=== PATIENT | female | born 1990 | race Caucasian/White ===

== ENCOUNTER 2023-05-01 15:53 | Outpatient (REF) | payer MEDICAID, SELFPAY ==
[2023-05-08 09:04] LABS: Hydrocodone, Ur NEGATIVE; Hydromorphone, Ur NEGATIVE; Morphine, Ur NEGATIVE; Norhydrocodone, Ur NEGATIVE; Noroxycodone, Ur NEGATIVE; Oxycodone, Ur NEGATIVE; Oxymorphone, Ur NEGATIVE
== END 2023-05-01 15:54 | disposition home or self-care (01) ==
LOC: HO.HHCLNP 15:53
PROVIDERS: Visit Provider Emergency Medicine
DX: F11.20 Opioid dependence, uncomplicated (principal)
CPT/HCPCS: 80365; G0480

== ENCOUNTER 2024-08-20 14:20 | Outpatient (REF) | payer MEDICAID, SELFPAY ==
[2024-08-20 16:06] LABS: MANUAL DIFF FLAG NO
[2024-08-20 16:15] LABS: Basophils Absolute Auto 0.1 X10*3/uL (0.0-0.2); Basophils Percent Auto 0.5 % (0-2); Eosinophils Percent Auto 8.2 % (0-4); Hematocrit 44.2 % (37.0-47.0); Hemoglobin 14.6 g/dl (12.0-16.0); Imm Gran Abs Auto 0.03 X10*3/uL (0.00-0.03); Imm Gran Pct Auto 0.2 % (0.0-0.4); Lymphocytes Absolute Auto 2.3 X10*3/uL (1.2-4.9); Lymphocytes Percent Auto 18.2 % (20-40); Mean Corpuscular Hemoglobin 30.2 pg (27.0-33.0); Mean Corpuscular Volume 91.5 fL (80.0-98.0); Mean Platelet Volume 9.9 fL (9.4-12.3); Monocytes Absolute Auto 0.7 X10*3/uL (0.1-1.2); Monocytes Percent Auto 5.3 % (2-11); Neutrophils Absolute Auto 8.6 x10*3/uL (2.0-8.3); Neutrophils Percent Auto 67.6 % (45-73); Platelet Count 474 X10*3/uL (160-400); Red Blood Count 4.83 X10*6/uL (4.20-5.50); Red Cell Distribution Width 13.7 % (11.0-16.0); White Blood Count 12.7 X10*3/uL (4.8-10.8)
[2024-08-20 16:28] LABS: Estimated Average Glucose 103 mg/dL; Hemoglobin A1C 127.4467 umol/L; Hemoglobin A1c % 5.2 % (<6.0); Total Hemoglobin (HGBA1C) 3806.2837 umol/L
[2024-08-20 17:08] LABS: Alanine Aminotransferase 57 U/L (0-31); Albumin Level 4.3 g/dL (3.5-5.0); Alkaline Phosphatase 138 U/L (39-117); Anion Gap 13 (12-20); Aspartate Amino Transferase 31 U/L (5-31); Bilirubin Direct 0.1 mg/dL (0.0-0.5); Bilirubin Total 0.3 mg/dL (0.0-1.0); Blood Urea Nitrogen 19 mg/dL (9-16); Calcium 9.6 mg/dL (8.4-10.2); Carbon Dioxide 26 mmol/L (22-29); Chloride 105 mmol/L (96-108); Estimated Glomerular Filt Rate > 60; Glucose Random 83 mg/dL (60-115); Sodium 140 mmol/L (135-145); Total Protein 8.8 g/dL (6.5-8.0)
[2024-08-20 17:26] LABS: TSH reflex Free T4 1.92 uIU/mL (0.32-4.0)
--- OUTSIDE RECORDS SUMMARY | 2024-08-20 17:58 | XMS_ITS | Encounter Summary ---
Author Organization [email or web address] Address [address] [place] [address] [facility] [place] [address] Care Team Providers Care Rustic Terrazzo Setter Name Role Phone Unavailable Primary Care Provider Unavailabl e Reason for Visit * Reason Onset Date Comments Med Refill 10/02/2023 Encounter Details Date Type Department Care Team (Late st Contact Info) Description 10/02/2023 Refill [facility] [address] [place] [address] [phone] Pranav Erazo MD [address] [place] [address] [phone] Shortness of breath Social History Tobacco Use Types Packs/Day Years Used Date Smoking Tobacco: Never Smokeless Tobacco: Never Depression Answer Date Recorded Patient Health Questionnaire-9 Score 4 02/22/2023 Depression Answer Date Recorded Patient Health Questionnaire-2 Score 0 02/22/2023 Comments Unknown Sex and Gender Information Value Date Recorded Sex Assigned at Female 04/25/2022 10:27 AM EDT Legal Sex Female 10:27 AM EDT Gender Identity Female 04/25/2022 10:27 AM EDT Sexual Orientation Straight 04/25/2022 10 :27 AM EDT documented as of this encounter Plan of Treatment Upcoming Encounters Date Type Department Care Team (Late st Contact Info) Description 09/16/2024 1:00 PM EDT Office Visit [facility] [address] [place] [address] [phone] Pranav Erazo MD [address] [place] [address] [phone] 10/02/2024 2:00 PM EDT Office Visit [facility] [address] [place] [address] Mayda Jones FNP 230 [place] [address] 11/11/2024 2:15 PM EDT Clinical Support [address] [address] Alize Carey RN documented as of this encounter Visit Diagnoses Diagnosis Shortness of breath documented in this encounter Additional Health Concerns Assessment Noted Time PHQ-9 Depression Total Score: 4 02/23/20 23 11:55 AM EDT documented as of this encounter
--- OUTSIDE RECORDS SUMMARY | 2024-08-20 17:58 | XMS_ITS | Encounter Summary ---
Author Organization [employer] [facility] Address [address] [place] [address] [place] [address] Care Team Providers Care Staffing Consultant Name Role Phone Unavailable Primary Care Provider Unavailabl e Reason for Visit * Reason Comments Med Refill Encounter Details Date Type Department Care Team (Late st Contact Info) Description 06/24/2024 Refill [facility] [address] [place] [address] Pranav Erazo MD [address] [place] [phone] Mixed anxiety and depressive disorder Social History Tobacco Use Types Packs/Day Years [...] Description 09/16/2024 1:00 PM EDT Office Visit [facility] [address] [place] [phone] Pranav Erazo MD [address] [place] [phone] 10/02/2024 2:00 PM EDT Office Visit [facility] [address] [place] [address] Mayda Jones FNP 230 [place] [address] 11/11/2024 2:15 PM EDT Clinical Support [facility] [address] [place] [address] Alize Carey RN documented as of this encounter Visit Diagnoses Diagnosis Mixed anxiety and depressive disorder Dysthymic disorder documented in this encounter Additional Health Concerns Assessment Noted Time PHQ-9 Depression Total Score: 4 02/23/20 23 11:55 AM EDT documented as of this encounter
--- OUTSIDE RECORDS SUMMARY | 2024-08-20 17:58 | XMS_ITS | Encounter Summary ---
Author Organization [employer] Address [address] [place] [address] Care Team Providers Care Financial Services Specialist Name Role Phone Mar Elizabeth Primary Care Provider [phone] Reason for Visit * Reason Comments Med Refill Encounter Details Date Type Department Care Team (Late st Contact Info) Description 02/09/2023 Refill [facility] [address] [place] [phone] Mar Elizabeth FNP [address] [place] [address] 238[address] Mixed anxiety and depressive disorder Social History Tobacco Use Types Packs/Day Years Used Date Smoking Tobacco: Never Smokeless Tobacco: Never Comments Unknown Sex and Gender Information Value [...] Description 09/16/2024 1:00 PM EDT Office Visit [facility] [address] [place] [phone] Pranav Erazo MD 230 [place] [address] 10/02/2024 2:00 PM EDT Office Visit [facility] [address] [place] [address] Mayda Jones FNP 230 [place] [address] 11/11/2024 2:15 PM EDT Clinical Support [facility] [address] [place] [phone] Alize Carey RN documented as of this encounter Visit Diagnoses Diagnosis Mixed anxiety and depressive disorder Dysthymic disorder documented in this encounter Care Teams Financial Services Specialist Relationship Specialty Start Date End Date Mar Elizabeth FNP [address] [place] [phone] PCP - General Family Medicine 02/23/22 04/20/23 documented as of this encounter
--- OUTSIDE RECORDS SUMMARY | 2024-08-20 17:58 | XMS_ITS | Encounter Summary ---
Author Organization [employer] Address [address] [place] [address] Care Team Providers Care Figurine Maker Name Role Phone Unavailable Primary Care Provider Unavailabl e Reason for Visit * Reason Comments Med Refill Encounter Details Date Type Department Care Team (Late st Contact Info) Description 10/01/2023 Refill [facility] [address] [place] [phone] Pranav Erazo MD [address] [place] [phone] Social History Tobacco Use Types Packs/Day Years [...] Description 09/16/2024 1:00 PM EDT Office Visit [facility] [address] [place] [address] Pranav Erazo MD [address] [place] [phone] 10/02/2024 2:00 PM EDT Office Visit [facility] [address] [place] [address] Mayda Jones FNP 230 [place] [address] 11/11/2024 2:15 PM EDT Clinical Support [facility] [address] [place] [address] Alize Carey RN documented as of this encounter Visit Diagnoses Not on filedocumented in this encounter Additional Health Concerns Assessment Noted Time PHQ-9 Depression Total Score: 4 02/23/20 23 11:55 AM EDT documented as of this encounter
--- OUTSIDE RECORDS SUMMARY | 2024-08-20 17:58 | XMS_ITS | Encounter Summary ---
Author Organization [employer] Address [address] [place] [address] 7 [place] [address] Care Team Providers Care Data Integration Architect Name Role Phone Unavailable Primary Care Provider Unavailabl e Encounter Details Date Type Department Care Team (Late st Contact Info) Description 10/31/2023 Orders Only [facility] [address] [place] [address] [phone] Pranav Erazo MD [address] [place] [phone] Social History Tobacco Use Types Packs/Day Years [...] 09/16/2024 1:00 PM EDT Office Visit [facility] [address] [place] [phone] Pranav Erazo MD [address] [place] [address] 10/02/2024 2:00 PM EDT Office Visit [facility] [address] [place] [address] Mayda Jones FNP 230 [place] [address] 11/11/2024 2:15 PM EDT Clinical Support [facility] [address] [place] [address] Alize Carey RN documented as of this encounter Visit Diagnoses Not on filedocumented in this encounter Additional Health Concerns Assessment Noted Time PHQ-9 Depression Total Score: 4 02/23/20 23 11:55 AM EDT documented as of this encounter
--- OUTSIDE RECORDS SUMMARY | 2024-08-20 17:58 | XMS_ITS | Encounter Summary ---
Author Organization [employer] [facility] Address [address] [place] [address] [place] [address] Care Team Providers Care Service Desk Director Name Role Phone Unavailable Primary Care Provider Unavailabl e Reason for Visit * Reason Onset Date Comments Med Refill 07/09/2024 Encounter Details Date Type Department Care Team (Late st Contact Info) Description 07/09/2024 Refill [facility] [address] [place] [address] Pranav Erazo MD [address] [place] [phone] Mixed anxiety and depressive disorder Social History [...] Description 09/16/2024 1:00 PM EDT Office Visit [facility] [address] [place] [address] Pranav Erazo MD [address] [place] [address] [phone] 10/02/2024 2:00 PM EDT Office Visit [facility] 230 [place] [address] Mayda Jones FNP 230 [place] [address] 11/11/2024 2:15 PM EDT Clinical Support [facility] [address] [place] [address] Alize Carey RN documented as of this encounter Visit Diagnoses Diagnosis Mixed anxiety and depressive disorder Dysthymic disorder documented in this encounter Additional Health Concerns Assessment Noted Time PHQ-9 Depression Total Score: 4 02/23/20 23 11:55 AM EDT documented as of this encounter
--- OUTSIDE RECORDS SUMMARY | 2024-08-20 17:58 | XMS_ITS | Encounter Summary ---
Author Organization [employer] [facility] Address [address] [place] [address] Care Team Providers Care Metal Forger'S Assistant Name Role Phone Unavailable Primary Care Provider Unavailabl e Reason for Visit * Reason Onset Date Comments Med Refill 07/03/2024 Encounter Details Date Type Department Care Team (Late st Contact Info) Description 07/03/2024 Refill [facility] [address] [place] [phone] Pranav Erazo MD [address] [place] [address] Mixed anxiety and depressive disorder Social History [...] Description 09/16/2024 1:00 PM EDT Office Visit [facility] [address] [place] [phone] Pranav Erazo MD [address] [place] [address] [phone] 10/02/2024 2:00 PM EDT Office Visit [facility] 230 [place] [address] Mayda Jones FNP 230 [place] [address] 11/11/2024 2:15 PM EDT Clinical Support [facility] [address] [place] [address] Alize Carey RN documented as of this encounter Visit Diagnoses Diagnosis Mixed anxiety and depressive disorder Dysthymic disorder documented in this encounter Additional Health Concerns Assessment Noted Time PHQ-9 Depression Total Score: 4 02/23/20 23 11:55 AM EDT documented as of this encounter
--- OUTSIDE RECORDS SUMMARY | 2024-08-20 17:58 | XMS_ITS | Encounter Summary ---
Author Organization [employer] [facility] Address [address] [place] [address] [place] [address] Care Team Providers Care Tractor Drill Operator Name Role Phone Mar Elizabeth SALOME Primary Care Provider [phone] Reason for Visit * Reason Onset Date Comments Med Refill 04/05/2023 Encounter Details Date Type Department Care Team (Late st Contact Info) Description 04/05/[address] [facility] [address] [place] [address] [phone] Pranav Erazo MD [address] [place] [address] [phone] Uncomplicated opioid dependence (CMS/[facility]) Social History Tobacco Use Types Packs/Day Years [...] 1:00 PM EDT Office Visit [facility] [address] [place] [address] [phone] Pranav Erazo MD [address] [place] [address] [phone] 10/02/2024 2:00 PM EDT Office Visit [facility] 230 [place] [address] Mayda Jones FNP 230 [place] [address] 11/11/2024 2:15 PM EDT Clinical Support [facility] [address] [place] [address] [phone] Alize Carey RN documented as of this encounter Visit Diagnoses Diagnosis Uncomplicated opioid dependence (CMS/HCC) documented in this encounter Additional Health Concerns Assessment Noted Time PHQ-9 Depression Total Score: 4 02/23/20 23 11:55 AM EDT documented as of this encounter Care Teams Tractor Drill Operator Relationship Specialty Start Date End Date Mar Elizabeth FNP [address] [place] [phone] PCP - General Family Medicine 02/23/22 04/20/23 documented as of this encounter
--- OUTSIDE RECORDS SUMMARY | 2024-08-20 17:58 | XMS_ITS | Encounter Summary ---
Author Organization [employer] Address [address] [place] [address] [place] [address] Care Team Providers Care Soda Worker Name Role Phone Mar Elizabeth SALOME Primary Care Provider [phone] Reason for Visit * Reason Onset Date Comments Med Refill [facility]-Referral 04/19/2023 - [facility]oph[facility] Encounter Details Date Type Department Care Team (Late st Contact Info) Description 04/19/2023 Refill [facility] 230 [place] [address] Pranav Erazo MD [address] [place] [address] Social History Tobacco Use Types Packs/Day Years [...] AM EDT documented as of this encounter Miscellaneous Notes * Telephone Encounter - Louise Perez MA - 04/19/2023 10:30 AM EDT T/c placed to pt and her phone # is not active at this time. This call was regarding to schedule anapt as tele-visit.-[facility]. documented in this encounter Plan of Treatment Upcoming Encounters Date Type Department Care Team (Late st Contact Info) Description 09/16/2024 1:00 PM EDT Office Visit [address] [address] Pranav Erazo MD [address] [place] [address] 10/02/2024 2:00 PM EDT Office Visit [address] [address] Mayda Jones FNP 230 [place], [place] [phone] 11/11/2024 2:15 PM EDT Clinical Support [address] [address] Alize Carey RN documented as of this encounter Visit Diagnoses Not on filedocumented in this encounter Additional Health Concerns Assessment Noted Time PHQ-9 Depression Total Score: 4 02/23/20 23 11:55 AM EDT documented as of this encounter Care Teams Soda Worker Relationship Specialty Start Date End Date Mar Elizabeth FNP [address] [place] [phone] PCP - General Family Medicine 02/23/22 04/20/23 documented as of this encounter
--- OUTSIDE RECORDS SUMMARY | 2024-08-20 17:58 | XMS_ITS | Encounter Summary ---
Author Organization [employer] Address [address] [place] [address] 7 [place] [address] Care Team Providers Care Mine Engineering Superintendent Name Role Phone Unavailable Primary Care Provider Unavailabl e Reason for Visit * Reason Comments Med Refill Encounter Details Date Type Department Care Team (Late st Contact Info) Description 01/08/2024 Refill [facility] [address] [place] [address] Pranav Erazo MD [address] [place] [address] Mixed anxiety and depressive disorder Social History [...] Description 09/16/2024 1:00 PM EDT Office Visit [facility] [address] [place] [address] Pranav Erazo MD [address] [place] [address] [phone] 10/02/2024 2:00 PM EDT Office Visit [facility] 230 [place] [address] Mayda Jones FNP 230 [place] [address] 11/11/2024 2:15 PM EDT Clinical Support [facility] [address] [place] [address] Alize Carey RN documented as of this encounter Visit Diagnoses Diagnosis Mixed anxiety and depressive disorder Dysthymic disorder documented in this encounter Additional Health Concerns Assessment Noted Time PHQ-9 Depression Total Score: 4 02/23/20 23 11:55 AM EDT documented as of this encounter
--- OUTSIDE RECORDS SUMMARY | 2024-08-20 17:58 | XMS_ITS | Encounter Summary ---
Author Organization [employer] Address [address] [place] [address] 7 [place] [address] Care Team Providers Care Analytical Strategist Name Role Phone Unavailable Primary Care Provider Unavailabl e Encounter Details Date Type Department Care Team (Late st Contact Info) Description 07/17/2023 Orders Only [facility] [address] [place] [address] [phone] Pranav Erazo MD [address] [place] [address] [phone] Shortness of breath Social History Tobacco Use [...] Description 09/16/2024 1:00 PM EDT Office Visit [facility] [address] [place] [address] [phone] Pranav Erazo MD [address] [place] [address] [phone] 10/02/2024 2:00 PM EDT Office Visit [facility] [address] [place] [phone] Mayda Jones FNP 230 [place] [address] 11/11/2024 2:15 PM EDT Clinical Support [facility] [address] [place] [address] Alize Carey RN documented as of this encounter Visit Diagnoses Diagnosis Shortness of breath documented in this encounter Additional Health Concerns Assessment Noted Time PHQ-9 Depression Total Score: 4 02/23/20 23 11:55 AM EDT documented as of this encounter
--- OUTSIDE RECORDS SUMMARY | 2024-08-20 17:58 | XMS_ITS | Encounter Summary ---
Author Organization [employer] [facility] Address [address] [place] [address] Care Team Providers Care Bow Stapler Name Role Phone Unavailable Primary Care Provider Unavailabl e Encounter Details Date Type Department Care Team (Late Contact Info) Description 07/13/2023 Orders Only [facility] [address] [place] [phone] Alize Carey RN Opioid type dependence, continuous (CMS/[facility]) Social History Tobacco Use Types [...] Encounters Date Type Department Care Team (Late Contact Info) Description 09/16/2024 1:00 PM EDT Office Visit [facility] [address] [place] [address] Pranav Erazo MD 230 [place] [address] 10/02/2024 2:00 PM EDT Office Visit [facility] [address] [place] [address] Mayda Jones FNP 230 [place] [address] 11/11/2024 2:15 PM EDT Clinical Support [facility] [address] [place] [address] Alize Carey, MADDY Scheduled Orders Name Type Priority Associated Diagnoses Orde r Schedule Hepatic Function Panel Lab Routine Opioid type dependence, continuous (CMS/HCC) Expected: 07/13/2023 (Approximate), Expires: 07/13/2024 Hepatitis A Antibody, Total Lab Routine Opioid type dependence, continuous (CMS/HCC) Expected: 07/13/2023 (Approximate), Expires: 07/13/2024 Hepatitis B Core Antibody, Total Lab Routine Opioid type dependence, continuous (CMS/HCC) Expected: 07/13/2023 (Approximate), Expires: 07/13/2024 Hepatitis B Surface Antibody, Qualitative Lab Routine Opioid type dependence, continuous (CMS/HCC) Expected: 07/13/2023 (Approximate), Expires: 07/13/2024 Hepatitis B surface antigen, EIA Lab Routine Opioid type dependence, continuous (CMS/HCC) Expected: 07/13/2023 (Approximate), Expires: 07/13/2024 Hepatitis C Antibody with Reflex to HCV, RNA, Quantitative, Real-Time PCR Lab Routine Opioid type dependence, continuous (CMS/HCC) Expected: 07/13/2023 (Approximate), Expires: 07/13/2024 HIV-1/2 Antigen and Antibodies, Fourth Generation, with Reflexes Lab Routine Opioid type dependence, continuous (CMS/HCC) Expected: 07/13/2023 (Approximate), Expires: 07/13/2024 Syphilis Screen Lab Routine Opioid type dependence, continuous (CMS/HCC) Expected: 07/13/2023 (Approximate), Expires: 07/13/2024 T-SPOT??.TB Lab Routine Opioid type dependence, continuous (CMS/HCC) Expected: 07/13/2023 (Approximate), Expires: 07/13/2024 documented as of this encounter Visit Diagnoses Diagnosis Opioid type dependence, continuous (CMS/HCC) Opioid type dependence, continuous documented in this encounter Additional Health Concerns Assessment Noted Time PHQ-9 Depression Total Score: 4 02/23/20 23 11:55 AM EDT documented as of this encounter
--- OUTSIDE RECORDS SUMMARY | 2024-08-20 17:58 | XMS_ITS | Encounter Summary ---
Author Organization [employer] Address [address] [place] [address] [place] [address] Care Team Providers Care Vessel Specialist Name Role Phone Unavailable Primary Care Provider Unavailabl e Reason for Visit * Reason Onset Date Comments Med Refill 07/12/2023 Encounter Details Date Type Department Care Team (Late st Contact Info) Description 07/12/2023 Refill [facility] [address] [place] [phone] Mar Elizabeth FNP [address] [place] [address] Shortness of breath Social History Tobacco Use [...] Description 09/16/2024 1:00 PM EDT Office Visit [facility] [address] [place] [address] Pranav Erazo MD [address] [place] [address] 10/02/2024 2:00 PM EDT Office Visit [facility] [address] [place] [address] Mayda Jones FNP [address] [place] [address] 11/11/2024 2:15 PM EDT Clinical Support [facility] [address] [place] [address] Alize Carey RN documented as of this encounter Visit Diagnoses Diagnosis Shortness of breath documented in this encounter Additional Health Concerns Assessment Noted Time PHQ-9 Depression Total Score: 4 02/23/20 23 11:55 AM EDT documented as of this encounter
--- OUTSIDE RECORDS SUMMARY | 2024-08-20 17:58 | XMS_ITS | Clinical Summary ---
Author Organization [employer] Address [address] [place] [address] 7 [place] [address] Care Team Providers Care Aviation Boatswain'S Mate Name Role Phone Unavailable Primary Care Provider Unavailabl e Allergies Active Allergy Reactions Criticality Noted Date Comments Amoxicillin 12/16/2014 Other reaction(s): Unknown Clavulanic Acid 12/16/2014 Other reaction(s): Unknown Hydrocodone 12/16/2014 Zolpidem 12/16/2014 Medications * This document contains information received from the source organization and may not represent a complete record from that organization. montelukast (Singulair) 10 MG tablet Take 1 tablet by mouth at bed time. 022 Active SUMAtriptan (Imitrex) 50 MG tablet Take 1 tablet by mouth. 022 Active Flovent HFA 110 MCG/ACT inhalerIndicati ons:Mild persistent asthma without complication INHALE 1 PUFF BY MOUTH EVERY 12 HOURS 36 g 023 Active sennosides (Senokot) 8.6 MG tabletIndicatio ns:Opioid dependence with opioid-induced disorder (CMS/HCC) Take 2 tablets by mouth every day as needed for constipation 180 tablet 3 023 Active docusate sodium (Colace) 100 MG capsuleIndicati ons:Uncomplicat ed opioid dependence (CMS/HCC) TAKE 1 CAPSULE BY MOUTH 2 TIMES EVERY DAY NEEDED CONSTIPATION 180 capsule 2 024 Active albuterol (Ventolin HFA) 108 (90 Base) MCG/ACT inhalerIndicati ons:Shortness of breath TAKE 2 PUFFS BY MOUTH EVERY 4 TO 6 HOURS NEEDED 18 g 3 024 Active Buprenorphine HCl-Naloxone HCl (Suboxone) 8-2 MG SL filmIndications :Uncomplicated opioid dependence (CMS/HCC) Place 1 Film under the tongue Once per day. 28 Film 1 024 Active DULoxetine (Cymbalta) [address] capsule TAKE 1 CAPSULE (60 MG) BY MOUTH 2 TIMES DAILY. DO NOT CRUSH OR CHEW. 60 capsule 3 025 Active buprenorphine-n aloxone (Suboxone) 12-3 MG per sublingual filmIndications :Uncomplicated opioid dependence (CMS/HCC) Place 1 Film under the tongue Once per day. Do not start before August 19, 2024. 28 Film 2 025 2024 Active cloNIDine (Catapres) 0.2 MG tablet Take 1 tablet (0.2 mg) by mouth at bedtime. 30 tablet 3 025 2025 Active lisinopril (Prinivil) 20 MG tablet Take 1 tablet (20 mg) by mouth Once per day. 30 tablet 3 025 2025 Active Blood Pressure kit 1 each 2 times daily. 1 kit 025 2025 Active amLODIPine (Norvasc) 5 MG tablet Take 1 tablet (5 mg) by mouth Once per day. 30 tablet 025 2025 Active cloNIDine (Catapres) 0.1 MG tabletIndicatio ns:Mixed anxiety and depressive disorder TAKE 1 TABLET BY MOUTH TWICE A DAY NEEDED 60 tablet 3 025 2024 Discontinued(D ose adjustment) buprenorphine-n aloxone (Suboxone) 12-3 MG per sublingual filmIndications :Uncomplicated opioid dependence (CMS/HCC) Place 1 Film under the tongue Once per day. 28 Film 1 025 2024 Discontinued(R eorder (will not trigger notification to Pharmacy)) Active Problems Problem Noted Date Diagnosed Date Stimulant use disorder 02/22/2023 Kidney stone 05/23/2022 Major depressive disorder, r ecurrent episode with anxious distress 05/23/2022 Assessment & Plan (02/22/2023 12:17 PM EDT): Assessment: Patient with struggling with grief, sleep disturbance, fatigue, diminished ability with concentration, anxiousness, persistent worry, irritability, fearfulness. Factors contributing to her symptoms are recent loss of two family members, Hx of trauma in childhood, Hx of self harm, Current substance use, single mother of special need kid. Patient will benefit from Ind. Therapy and Medication Management. At this time Collette Abarca meets criteria for Visit Diagnoses: Problem List Items Addressed This Visit Other Major depressive disorder, recurrent episode with anxious distress (CMS/HCC) Opioid dependence (CMS/HCC) Stimulant use disorder Patient ready to address current needs Yes Strengths include willing to seek treatment PLAN: 1. Follow up with [facility]: Recommended for follow-up: during [facility]AT appts 2. Patient goal is make healthier options 3. Behavioral Recommendations a. Ind. Therapy, referral will be placed b. Medication Management c. Use of coping skills provided Opioid dependence 05/23/2022 Encounters Date Type Department Care Team Description 08/19/2024 2:30 PM EST Office Visit [facility] [address] [place] [address] Pranav Erazo MD Uncomplicated opioid dependence (CMS/HCC) (Primary Dx); Elevated blood pressure reading in office without diagnosis of hypertension 08/19/2024 Telephone [facility] [address] [place] [address] Neto Georges MD New patient 08/19/2024 Travel 08/06/2024 Refill [facility] [address] [place] [address] Alize Carey, RN Uncomplicated opioid dependence (CMS/HCC) 07/12/2024 Refill [facility] [address] [place] [address] Alize Carey, RN Uncomplicated opioid dependence (CMS/HCC) 07/09/2024 Orders Only [facility] [address] [place], [place] [phone] Pranav Erazo MD Mixed anxiety and depressive disorder 07/09/2024 Refill [facility] [address] [place] [address] Pranav Erazo MD Mixed anxiety and depressive disorder 07/03/2024 Refill [facility] [address] [place] [address] Pranav Erazo MD Mixed anxiety and depressive disorder 07/03/2024 Refill [facility] [address] [place] [address] Pranav Erazo MD 07/01/2024 2:45 PM EST Office Visit [address] [address] Pranav Erazo MD Uncomplicated opioid dependence (CMS/HCC) (Primary Dx) 07/01/2024 Refill [facility] [address] [place] [phone] Alize Carey RN Uncomplicated opioid dependence (CMS/HCC) 07/01/2024 Patient Outreach [address] [address] [facility] 07/01/2024 Patient Outreach [address] [address] [facility] 07/01/2024 Travel 06/24/[address] [address] Pranav Erazo MD Mixed anxiety and depressive disorder 06/12/[address] [phone] Neto Georges MD New patient appt. from Last 3 Months Immunizations Name Administration Dates Next Due Hep A, Adult 09/07/2020 Influenza injectable quadriv alent preservative free 02/25/2021 MMR 09/11/2018 Pfizer Covid-19 Vaccine 12+ 11/08/2020, Pneumococcal Polysaccharide PPSV23 02/25/2021, Tdap 02/25/2021,06/22/2018,04/21/2015 Social History Tobacco Use Types Packs/Day Years Used Date Smoking Tobacco: Never Smokeless Tobacco: Never Tobacco Cessation:Counseling Given: Not Answered Depression Answer Date Recorded Patient Health Questionnaire-9 Score 4 02/22/2023 Depression Answer Date Recorded Patient Health Questionnaire-2 Score 0 02/22/2023 Comments Unknown Sex and Gender Information Value Date Recorded Sex Assigned at Female 04/25/2022 10:27 AM EDT Legal Sex Female 10:27 AM EDT Gender Identity Female 04/25/2022 10:27 AM EDT Sexual Orientation Straight 04/25/2022 10 :27 AM EDT Last Filed Vital Signs Vital Sign Reading Time Taken Comments Blood Pressure 170/110 08/19/2024 2:36 PM EST Pulse 123 08/19/2024 2:36 PM EST Temperature 36.6 ??C (97.9 ??F) 08/19/2024 2:36 PM ES T Respiratory Rate 20 08/19/2024 2:36 PM EST Oxygen Saturation - - Inhaled Oxygen Concentration - - Weight 96.2 kg (212 lb 0.2 oz) 08/19/2024 2:36 P M EST Height 160 cm (5' 3 ) 10/22/2020 12:04 AM EDT Body Mass Index 37.56 10/22/2020 12:04 AM EDT Plan of Treatment Upcoming Encounters Date Type Department Care Team (Late st Contact Info) Description 09/16/2024 1:00 PM EDT Office Visit [address] [address] Pranav Erazo MD [address] [place] [address] 10/02/2024 2:00 PM EDT Office Visit [address] [address] Mayda Jones FNP [address] [place] [address] 11/11/2024 2:15 PM EDT Clinical Support [address] [address] Alize Carey, RN Health Maintenance Due Date Last Done Comments SDOH Screening 1989 Alcohol/Substance Use Screening 2001 Family Planning (PISQ) 01/07/2004 Hepatitis B Vaccines (1 of 3 - 19+ 3-dose series) 01/07/2008 Pap Smear 2010 Cervical Cancer Screening 2019 HPV/Cotest 2019 Hepatitis A Vaccines (2 of 2 - Risk 2-dose series) 03/10/2021 09/07/2020 Pneumococcal Vaccine: Pediatrics (0 to 5 Years) and At-Risk Patients (6 to 49) Years) (2 of 2 - PCV) 02/25/2022 02/25/2021, 10/24/2017 Depression Screening 02/23/2024 02/22/2023, 02/23/20 23 COVID-19 Vaccine (4 - season) 2024 06/08/2021, 11/08/2020, 10/18/2020 Influenza Vaccine (#1) 2024 , 03/29/2019, 03/30/2018, Additional history exists Tobacco Screening 08/19/2025 08/19/2024 DTaP/Tdap/Td Vaccines (5 - Td or Tdap) 02/25/2031 02/25/2021, 06/22/2018, 04/21/2015, Additional history exists Zoster Vaccines (1 of 2) 2039 RSV Patients and Patients Aged 60 years or older (1 - 1-dose 75+ series) 01/07/2064 HIV Screening Completed 05/23/2022, 04/27, 05/18/2020 Hepatitis C Screening Completed 05/23/2022 , 05/23/2022, 05/18/2020 HIB Vaccines Aged Out No longer eligi ble based on patient's age to complete this topic HPV Vaccines Aged Out No longer eligi ble based on patient's age to complete this topic IPV Vaccines Aged Out No longer eligi ble based on patient's age to complete this topic Meningococcal Vaccine Aged Out No johanna kendall eligible based on patient's age to complete this topic RSV under 20 months Aged Out No longe r eligible based on patient's age to complete this topic Rotavirus Vaccines Aged Out No longer eligible based on patient's age to complete this topic Procedures Procedure Name Priority Date/Time Associated Diagnosis Comments VITAMIN D,25-OH,TOTAL,IA Routine 08/20/2024 2:25 PM EST Elevated blood pressure reading in office without diagnosis of hypertension TSH W/REFLEX TO FT4 Routine 08/20/2024 2 :25 PM EST Elevated blood pressure reading in office without diagnosis of hypertension HEMOGLOBIN A1C Routine 08/20/2024 2:25 PM EST Elevated blood pressure reading in office without diagnosis of hypertension BASIC METABOLIC PANEL Routine 08/20/2024 2:25 PM EST Elevated blood pressure reading in office without diagnosis of hypertension HEPATIC FUNCTION PANEL Routine 08/20/2024 2:25 PM EST Uncomplicated opioid dependence (CMS/HCC) CBC WITH AUTO DIFFERENTIAL Routine 08/20/2024 2:20 PM EST Elevated blood pressure reading in office without diagnosis of hypertension POCT APRAG-14 URINE DRUG SCREEN Routine 08/19/2024 2:41 PM EST Uncomplicated opioid dependence (CMS/HCC) POCT PARAG-14 URINE DRUG SCREEN Routine 07/01/2024 2:37 PM EST Uncomplicated opioid dependence (CMS/HCC) HEPATITIS C AB W/REFL TO HCV RNA, QN, PCR Routine 05/23/2022 3:29 PM EST HIV 1/2 ANTIGEN/ANTIBODY, FOURTH GENERATION W/RFL Routine 05/23/2022 3:29 PM EST from Last 3 Months or Most Recently Relevant to Health Maintenance Results * (ABNORMAL) Vitamin D, 25-Hydroxy, Total, Immunoassay (08/20/2024 2:25 PM EST) Vitamin D 25-OH Total 22.0(L) >30 ng/mL [facility] Comment:Health Based Referen ce Values*< 20 ng/mL Pmcaethmk73-46 ng/mL Insufficient> 30 ng/mL Sufficient*Yadira CERVANTES. N Engl J Med. 2007;357:266-280Care must be taken in interpreting Vitamin D results fromdifferent laboratories and methodologies. Published datademonstrated that results from patients undergoinghemodialysis may show a negative bias when tested withvarious automated 25-OH vitamin D assays when compared toLC-MS/MS.When testing samples from patients whose predominant form ofVitamin D is Vitamin D2, such as patients receiving VitaminD2 supplementation, results that are subtherapeutic shouldbe confirmed with another method such as LC-MS/MS. Blood 08/20/2024 2:25 PM EST 08/20/2024 4:04 PM EST Result Harpreet Erazo MD LAB BLOOD ORDERABLES Final Resul t Performing Organization Address [facility] Co de Phone Number [facility] [address] [place] [phone] * TSH with Reflex to Free T4 (08/20/2024 2:25 PM EST) TSH reflex Free T4 1.92 0.32 - 4.0 uIU/mL [facility] Blood Venous blood specimen / Unknown 08/20/2024 2:25 PM EST 08/20/2024 4:04 PM EST Result Harpreet Erazo MD LAB BLOOD ORDERABLES Final Resul t Performing Organization Address [facility] de Phone Number [facility] [address] [place] [phone] * Hemoglobin A1c (08/20/2024 2:25 PM EST) Hemoglobin A1c 5.2 <6.0 % [facility] Comment:Hemoglobin A1C Refer ence Range Adults: 4.8 - 6.0 % Non diabetic: < 6.0 % Goal: < 7.0 %Additional Action Suggested: > 8.0 %Note: Hemoglobin A1c results are invalid for patients with abnormal amounts of HbF. Blood transfusions may impact the HbA1c concentration in the patient sample. Estimated Average Glucose 103 mg/dL [facility] Comment:eAG = Estimated ave rage glucose which is %A1C expressed asaverage glucose, using the formula of the S8Y-AkclpchItkkwje Glucose study (ADAG), Diabetes Care, Vol.31,#8,Jan. 2007 Blood Venous blood specimen / Unknown 08/20/2024 2:25 PM EST 08/20/2024 4:04 PM EST Result Harpreet Erazo MD LAB BLOOD ORDERABLES Final Resul t Performing Organization Address [facility] Co de Phone Number [facility] [address] [place] [phone] * (ABNORMAL) Hepatic Function Panel (08/20/2024 2:25 PM EST) Pathologist [facility] Bilirubin, Total 0.3 0.0 - 1.0 mg/dL [facility] Bilirubin, Direct 0.1 0.0 - 0.5 mg/dL [facility] Aspartate Amino Transferase 31 5 - 31 U/L [facility] Alanine Aminotransferase 57(H) 0 - 31 U/L [facility] Total Protein 8.8(H) 6.5 - 8.0 g/dL [facility] Albumin Level 4.3 3.5 - 5.0 g/dL [facility] Alkaline Phosphatase 138(H) 39 - 117 U/L [facility] Blood Venous blood specimen / Unknown 08/20/2024 2:25 PM EST 08/20/2024 4:04 PM EST us Pranav Erazo MD LAB BLOOD ORDERABLES Final Resul t Performing Organization Address [facility] de Phone Number [facility] [address] [place] [phone] * (ABNORMAL) Basic Metabolic Panel (08/20/2024 2:25 PM EST) [facility] Sodium 140 135 - 145 mmol/L [facility] Potassium 4.0 3.3 - 5.1 mmol/L [facility] Chloride 105 96 - 108 mmol/L [facility] Carbon Dioxide 26 22 - 29 mmol/L [facility] Anion Gap 13 12 - 20 [facility] Urea Nitrogen (BUN) 19(H) 9 - 16 mg/dL [facility] Creatinine, Serum 0.81 0.5 - 1.4 mg/dL [facility] Estimated Glomerular Filt Rate >60 [facility] Comment:Chronic Kidney Disea se: Estimated GFR < 60 mL/min/1.48l5Ojdigq Kidney Disease: Estimated GFR < 15 mL/min/1.73m2 Glucose 83 60 - 115 mg/dL [facility] Calcium 9.6 8.4 - 10.2 mg/dL [facility] Blood Venous blood specimen / Unknown 08/20/2024 2:25 PM EST 08/20/2024 4:04 PM EST us Pranav Erazo MD LAB BLOOD ORDERABLES Final Resul t [facility] [address] [place] [phone] * (ABNORMAL) CBC auto differential (08/20/2024 2:20 PM EST) White Blood Count 12.7(H) 4.8 - 10.8 X10*3/uL [facility] Red Blood Count 4.83 4.20 - 5.50 X10*6/uL [facility] Hemoglobin 14.6 12.0 - 16.0 g/dl [facility] Hematocrit 44.2 37.0 - 47.0 % [facility] Mean Corpuscular Volume 91.5 80.0 - 98.0 fL [facility] Mean Corpuscular Hemoglobin 30.2 27.0 - 33.0 pg [facility] Mean Corpuscular HGB Conc 33.0 31.0 - 35.0 g/dl [facility] Red Cell Distribution Width 13.7 11.0 - 16.0 % [facility] Platelet Count 474(H) 160 - 400 X10*3/uL [facility] Mean Platelet Volume 9.9 9.4 - 12.3 fL [facility] Neutrophils Percent Auto 67.6 45 - 73 % [facility] Imm Gran Pct Auto 0.2 0.0 - 0.4 % [facility] Lymphocytes Percent Auto 18.2(L) 20 - 40 % [facility] Monocytes Percent Auto 5.3 2 - 11 % [facility] Eosinophils Percent Auto 8.2(H) 0 - 4 % [facility] Basophils Percent Auto 0.5 0 - 2 % [facility] NRBC Pct Auto 0.0 0.0 - 0.2 /100WBC [facility] Neutrophils Absolute Auto 8.6(H) 2.0 - 8.3 x10*3/uL [facility] Imm Gran Abs Auto 0.03 0.00 - 0.03 X10*3/uL [facility] Lymphocytes Absolute Auto 2.3 1.2 - 4.9 X10*3/uL [facility] Monocytes Absolute Auto 0.7 0.1 - 1.2 X10*3/uL [facility] Eosinophils Absolute Auto 1.0(H) 0.0 - 0.4 X10*3/uL [facility] Basophils Absolute Auto 0.1 0.0 - 0.2 X10*3/uL [facility] NRBC Abs Auto 0.000 0.0 - 0.012 X10*3/uL [facility] Blood Venous blood specimen / Unknown 08/20/2024 2:20 PM EST 08/20/2024 4:04 PM EST us Pranav Erazo MD LAB BLOOD ORDERABLES Final Resul t [facility] [address] [place] [phone] * POCT PARAG-14 Urine Drug Screen (08/19/2024 2:41 PM EST) Only the most recent of2 resultswithin the time period is included. THC Positive Cocaine Screen, Urine Negative Opiate Screen, Urine Negative Methamphetamine Screen Urine Negative Amphetamine Screen, Urine Negative Benzodiazepines Screen, Urine Negative Barbiturate Screen, Urine Negative Methadone Screen, Urine Negative Buprenophine Screen, Urine Positive TCA, Urine Negative MDMA Urine Negative ng/mL Oxycodone Screen, Urine Negative Phencyclidine (PCP), Urine Negative Propoxyphene, Urine Negative Fentanyl, Urine Negative Urine Urine specimen obtained by clean catch procedure / Unknown 08/19/2024 2:41 PM EST us Pranav Erazo MD POINT OF CARE TEST ENTER/EDIT OR DERABLES Final Result * Hepatitis C Antibody with Reflex to HCV, RNA, Quantitative, Real-Time PCR (05/23/2022 3:29 PM EST) Hepatitis C Antibody NON-REACT MARIFER NON-REACT MARIFER [facility] Index 0.06 <1.00 [facility] Comment: HCV antibody was non-reactive. There is no laboratory evidence of HCV infection. In most cases, no further action is required. However, if recent HCV exposure is suspected, a test for HCV RNA (test code 47009) is suggested. For additional information please refer to http://education.[employer]/faq/IFJ00u8 (This link is being provided for informational/ educational purposes only.) 05/23/2022 3:29 PM EST 05/23/2022 3:30 PM EST Narrative [facility] - 05/25/2022 11:46 PM EST FASTING:NO PATIENT UNABLE TO VOID; ADVISED TO RETURN FOR COLLECTION. FASTING: NO us Pranav Erazo MD LAB BLOOD ORDERABLES Final Resul t [facility] [address], [place] [address] [facility] [address], [facility] [place] [address] * HIV-1/2 Antigen and Antibodies, Fourth Generation, with Reflexes (05/23/2022 3:29 PM EST) HIV Antigen/Antibody, 4th Generation NON-REAC TIVE NON-REAC TIVE [facility] Comment: HIV-1 antigen and HIV-1/HIV-2 antibodies were not detected. There is no laboratory evidence of HIV infection. PLEASE NOTE: This information has been disclosed to you from records whose confidentiality may be protected by state law. ??If your state requires such protection, then the state law prohibits you from making any further disclosure of the information without the specific written consent of the person to whom it pertains, or as otherwise permitted by law. A general authorization for the release of medical or other information is NOT sufficient for this purpose. ?? For additional information please refer to http://education.[employer]/faq/QWJ384 (This link is being provided for informational/ educational purposes only.) The performance of this assay has not been clinically validated in patients less than 2 years old. 05/23/2022 3:29 PM EST 05/23/2022 3:30 PM EST Narrative [facility] - 05/25/2022 11:46 PM EST FASTING:NO PATIENT UNABLE TO VOID; ADVISED TO RETURN FOR COLLECTION. FASTING: NO Pranav Erazo MD LAB BLOOD ORDERABLES Final Resul t [facility] [address], [place] [address] [facility] [employer] [facility] [address], [place] [address] from Last 3 Months or Most Recently Relevant to Health Maintenance Insurance [facility] [id number]
--- OUTSIDE RECORDS SUMMARY | 2024-08-20 17:58 | XMS_ITS | Encounter Summary ---
Author Organization [employer] Address [address] [place] [address] Care Team Providers Care Erection Shop Supervisor Name Role Phone Unavailable Primary Care Provider Unavailabl e Reason for Visit * Reason Onset Date Comments Med Refill 03/26/2024 Encounter Details Date Type Department Care Team (Late st Contact Info) Description 03/26/2024 Refill [facility] [address] [place] [address] Pranav Erazo MD [address] [place] [address] Social History Tobacco Use Types Packs/Day Years [...] encounter Miscellaneous Notes * Telephone Encounter - Stephanie Tamayo - 03/29/2024 2:53 PM EDT Outgoing call to patient to book [employer] appt. No Answer. Left Message. documented in this encounter Plan of Treatment Upcoming Encounters Date Type Department Care Team (Late st Contact Info) Description 09/16/2024 1:00 PM EDT Office Visit [address] [address] Pranav Erazo MD [address] [place] [address] 10/02/2024 2:00 PM EDT Office Visit [address] [phone] Mayda Jones FNP [address] [place] [address] 11/11/2024 2:15 PM EDT Clinical Support [address] [address] Alize Carey, MADDY documented as of this encounter Visit Diagnoses Not on filedocumented in this encounter Additional Health Concerns Assessment Noted Time PHQ-9 Depression Total Score: 4 02/23/20 23 11:55 AM EDT documented as of this encounter
--- OUTSIDE RECORDS SUMMARY | 2024-08-20 17:58 | XMS_ITS | Encounter Summary ---
Author Organization [employer] Address [address] [place] [address] [place] [address] Care Team Providers Care Class B Truck Driver Name Role Phone Mar Elizabeth Primary Care Provider [phone] Reason for Visit * Reason Onset Date Comments Med Refill 02/09/2023 Encounter Details Date Type Department Care Team (Late st Contact Info) Description 02/09/[address] [facility] [address] [place] [phone] Mar Elizabeth FNP [address] [place] [phone] Mixed anxiety and depressive disorder Social History [...] Description 09/16/2024 1:00 PM EDT Office Visit [facility] [address] [place] [phone] Pranav Erazo MD [address] [place] [address] 10/02/2024 2:00 PM EDT Office Visit [facility] [address] [place] [phone] Mayda Jones FNP [address] [place] [address] 11/11/2024 2:15 PM EDT Clinical Support [facility] [address] [place] [address] Alize Carey RN documented as of this encounter Visit Diagnoses Diagnosis Mixed anxiety and depressive disorder Dysthymic disorder documented in this encounter Care Teams Class B Truck Driver Relationship Specialty Start Date End Date Mar Elizabeth FNP [address] [place] [phone] PCP - General Family Medicine 02/23/22 04/20/23 documented as of this encounter
--- OUTSIDE RECORDS SUMMARY | 2024-08-20 17:58 | XMS_ITS | Encounter Summary ---
Author Organization [facility] Address [address] [place] [address] Care Team Providers Care Cryptographic Machine Operator Name Role Phone Unavailable Primary Care Provider Unavailabl e Reason for Visit * Reason Onset Date Comments Med Refill 01/16/2024 Encounter Details Date Type Department Care Team (Late st Contact Info) Description 01/16/2024 Refill [facility] [address] [place] [address] Pranav Erazo MD [address] [place] [address] Mixed anxiety and depressive disorder Social History [...] Description 09/16/2024 1:00 PM EDT Office Visit [facility] [address] [place] [address] Pranav Erazo MD [address] [place] [address] [phone] 10/02/2024 2:00 PM EDT Office Visit [facility] [address] [place] [address] Mayda Jones FNP [address] [place] [address] 11/11/2024 2:15 PM EDT Clinical Support [facility] [address] [place] [address] Alize Carey RN documented as of this encounter Visit Diagnoses Diagnosis Mixed anxiety and depressive disorder Dysthymic disorder documented in this encounter Additional Health Concerns Assessment Noted Time PHQ-9 Depression Total Score: 4 02/23/20 23 11:55 AM EDT documented as of this encounter
--- OUTSIDE RECORDS SUMMARY | 2024-08-20 17:58 | XMS_ITS | Encounter Summary ---
Author Organization [employer] Address [address] [place] [address] 7 [place] [address] Care Team Providers Care Network Infrastructure Architect Name Role Phone Unavailable Primary Care Provider Unavailabl e Encounter Details Date Type Department Care Team (Late st Contact Info) Description 04/24/2023 Orders Only [facility] [address] [place] [address] Pranav Erazo MD [address] [place] [phone] Social History Tobacco Use Types Packs/Day Years [...] Description 09/16/2024 1:00 PM EDT Office Visit [facility] [address] [place] [address] Pranav Erazo MD [address] [place] [address] 10/02/2024 2:00 PM EDT Office Visit [facility] [address] [place] [address] Mayda Jones FNP 230 [place] [address] 11/11/2024 2:15 PM EDT Clinical Support [facility] [address] [place] [address] Alize Carey RN documented as of this encounter Visit Diagnoses Not on filedocumented in this encounter Additional Health Concerns Assessment Noted Time PHQ-9 Depression Total Score: 4 02/23/20 23 11:55 AM EDT documented as of this encounter
--- OUTSIDE RECORDS SUMMARY | 2024-08-20 17:58 | XMS_ITS | Encounter Summary ---
Author Organization [employer] [facility] Address [address] [place] [address] [place] [address] Care Team Providers Care Automotive Power Electronics Engineer Name Role Phone Unavailable Primary Care Provider Unavailabl e Reason for Visit * Reason Comments Med Refill Encounter Details Date Type Department Care Team (Late st Contact Info) Description 09/28/2023 Refill [facility] [address] [place] [address] Pranav Erazo MD [address] [place] [address] Shortness of breath Social History Tobacco Use [...] Description 09/16/2024 1:00 PM EDT Office Visit [facility] [address] [place] [address] Pranav Erazo MD [address] [place] [address] 10/02/2024 2:00 PM EDT Office Visit [facility] [address] [place] [address] Mayda Jones FNP 230 [place] [address] 11/11/2024 2:15 PM EDT Clinical Support [facility] [address] [place] [address] Alize Carey RN documented as of this encounter Visit Diagnoses Diagnosis Shortness of breath documented in this encounter Additional Health Concerns Assessment Noted Time PHQ-9 Depression Total Score: 4 02/23/20 23 11:55 AM EDT documented as of this encounter
--- OUTSIDE RECORDS SUMMARY | 2024-08-20 17:58 | XMS_ITS | Encounter Summary ---
Author Organization [employer] Address [address] [place] [address] [place] [address] Care Team Providers Care Ore Dressing Engineer Name Role Phone Unavailable Primary Care Provider Unavailabl e Reason for Visit * Reason Onset Date Comments Med Refill 10/02/2023 Encounter Details Date Type Department Care Team (Late st Contact Info) Description 10/02/2023 Refill [facility] [address] [place] [address] Pranav Erazo MD [address] [place] [address] Social History Tobacco Use Types Packs/Day Years [...] encounter Miscellaneous Notes * Telephone Encounter - Kandi Miguel - 10/05/2023 1:15 PM EDT Patient added to [facility] New Patient wait list as of 10/05/23. * Telephone Encounter - Kandi Miguel - 10/05/2023 1:15 PM EDT ----- Message from Alize Carey RN sent at 10/05/2023 11:08 AM EDT ----- Needs LITHOGRAPHIC ARTIST appt please, Thank you documented in this encounter Plan of Treatment Upcoming Encounters Date Type Department Care Team (Late st Contact Info) Description 09/16/2024 1:00 PM EDT Office Visit [address] [phone] Pranav Erazo MD [address] [place] [address] 10/02/2024 2:00 PM EDT Office Visit [address] [phone] Mayda Jones FNP 230 [place], [place] [phone] 11/11/2024 2:15 PM EDT Clinical Support [address] [phone] Alize Carey RN documented as of this encounter Visit Diagnoses Not on filedocumented in this encounter Additional Health Concerns Assessment Noted Time PHQ-9 Depression Total Score: 4 02/23/20 23 11:55 AM EDT documented as of this encounter
--- OUTSIDE RECORDS SUMMARY | 2024-08-20 17:58 | XMS_ITS | Encounter Summary ---
Author Organization [employer] Address [address] [place] [address] [address] [place] [address] Care Team Providers Care Director Business Development Name Role Phone Unavailable Primary Care Provider Unavailabl e Reason for Visit * Reason Comments Med Refill Encounter Details Date Type Department Care Team (Late st Contact Info) Description 07/11/2023 Refill [facility] [address] [place] [address] Mar Elizabeth FNP [address] [place] [address] Shortness of breath Social History Tobacco Use [...] Description 09/16/2024 1:00 PM EDT Office Visit [facility] [address] [place] [address] Pranav Erazo MD [address] [place] [address] 10/02/2024 2:00 PM EDT Office Visit [facility] [address] [place] [address] Mayda Jones FNP [address] [place] [address] 11/11/2024 2:15 PM EDT Clinical Support [facility] [address] [place] [address] Alize Carey RN documented as of this encounter Visit Diagnoses Diagnosis Shortness of breath documented in this encounter Additional Health Concerns Assessment Noted Time PHQ-9 Depression Total Score: 4 02/23/20 23 11:55 AM EDT documented as of this encounter
--- OUTSIDE RECORDS SUMMARY | 2024-08-20 17:58 | XMS_ITS | Encounter Summary ---
Author Organization [employer] Address [address] [place] [address] 7 [place] [address] Care Team Providers Care Multiple Effect Evaporator Operator Name Role Phone Unavailable Primary Care Provider Unavailabl e Reason for Visit * Reason Comments Med Refill Encounter Details Date Type Department Care Team (Late st Contact Info) Description 01/01/2024 Refill [facility] [address] [place] [address] Pranav Erazo MD [address] [place] [address] Social History Tobacco Use Types Packs/Day Years [...] 09/16/2024 1:00 PM EDT Office Visit [facility] [address] [place] [address] Pranav Erazo MD [address] [place] [address] 10/02/2024 2:00 PM EDT Office Visit [facility] [address] [place] [address] Mayda Jones FNP [address] [place] [address] 11/11/2024 2:15 PM EDT Clinical Support [facility] [address] [place] [address] Alize Carey RN documented as of this encounter Visit Diagnoses Not on filedocumented in this encounter Additional Health Concerns Assessment Noted Time PHQ-9 Depression Total Score: 4 02/23/20 23 11:55 AM EDT documented as of this encounter
--- OUTSIDE RECORDS SUMMARY | 2024-08-20 17:58 | XMS_ITS | Encounter Summary ---
Author Organization [facility] Address [address] [place] [address] Care Team Providers Care Flexible Machining System Machinist Name Role Phone Unavailable Primary Care Provider Unavailabl e Reason for Visit * Reason Comments Med Refill Encounter Details Date Type Department Care Team (Late st Contact Info) Description 07/03/2024 Refill [facility] [address] [place] [address] Pranav Erazo MD [address] [place] [address] Social History Tobacco Use Types Packs/Day Years [...] Description 09/16/2024 1:00 PM EDT Office Visit [facility] [address] [place] [phone] Pranav Erazo MD [address] [place] [address] 10/02/2024 2:00 PM EDT Office Visit [facility] [address] [place] [address] Mayda Jones FNP 230 [place] [address] 11/11/2024 2:15 PM EDT Clinical Support [facility] [address] [place] [address] Alize Carey RN documented as of this encounter Visit Diagnoses Not on filedocumented in this encounter Additional Health Concerns Assessment Noted Time PHQ-9 Depression Total Score: 4 02/23/20 23 11:55 AM EDT documented as of this encounter
--- OUTSIDE RECORDS SUMMARY | 2024-08-20 17:58 | XMS_ITS | Encounter Summary ---
Author Organization [facility] [employer] [facility] Address [address] [place] [address] 7 [place] [address] Care Team Providers Care Child Care Cook Name Role Phone Unavailable Primary Care Provider Unavailabl e Reason for Visit * Reason Comments Med Refill Encounter Details Date Type Department Care Team (Late Contact Info) Description 11/22/2023 Refill [facility] [address] [place] [address] Mar Elizabeth FNP [address] [place] [address] Shortness of breath Social History Tobacco Use [...] * Telephone Encounter - Stephanie Tamayo - 11/27/2023 2:13 PM EDT Contact pt to schedule new pt appt no answer LVM. documented in this encounter Plan of Treatment Upcoming Encounters Date Type Department Care Team (Late Contact Info) Description 09/16/2024 1:00 PM EDT Office Visit [facility] [address] [place] [address] Pranav Erazo MD [address] [place] [address] 10/02/2024 2:00 PM EDT Office Visit [facility] [address] [place], [place] [phone] Mayda Jones FNP [address] [place] [address] 11/11/2024 2:15 PM EDT Clinical Support [facility] [address] [place] [address] Alize Carey RN documented as of this encounter Visit Diagnoses Diagnosis Shortness of breath documented in this encounter Additional Health Concerns Assessment Noted Time PHQ-9 Depression Total Score: 4 02/23/20 23 11:55 AM EDT documented as of this encounter
--- OUTSIDE RECORDS SUMMARY | 2024-08-20 17:58 | XMS_ITS | Encounter Summary ---
Author Organization [employer] Address [address] [place] [address] [place] [address] Care Team Providers Care Body Joiner Name Role Phone Unavailable Primary Care Provider Unavailabl e Reason for Visit * Reason Comments OBAT F/U Encounter Details Date Type Department Care Team (Latest Contact Info) Description 08/19/2024 2:30 PM EST Office Visit [facility] [address] [place] [address] Pranav Erazo MD [address] [place] [address] Uncomplicated opioid dependence (CMS/HCC) (Primary Dx); Elevated blood pressure reading in office without diagnosis of hypertension Social History Tobacco Use Types Packs/Day Years [...] AM EDT documented as of this encounter Last Filed Vital Signs Vital Sign Reading Time Taken Comments Blood Pressure 170/110 08/19/2024 2:36 PM EST Pulse 123 08/19/2024 2:36 PM EST Temperature 36.6 ??C (97.9 ??F) 08/19/2024 2:36 PM ES T Respiratory Rate 20 08/19/2024 2:36 PM EST Oxygen Saturation - - Inhaled Oxygen Concentration - - Weight 96.2 kg (212 lb 0.2 oz) 08/19/2024 2:36 P M EST Height - - Body Mass Index 37.56 10/22/2020 12:04 AM EDT documented in this encounter Progress Notes * Pranav Erazo MD - 08/19/2024 2:30 PM EST Subjective Patient ID: Collette Abarca is a 34 y.o. female. HPI Patient here for Opioid Dependence RV. Pt on current dose of Suboxone 12/3 mg on an 8 week schedulePt has been in the program for 4 years, 4 months. Induction date 03/24/20. LFTS's completed 05/23/22. Hep A vaccine pending. Due for Hep A #2. Hep B Immune. control method- Liletta IUD. Plan: Suboxone dosing schedule of 12/3 mg daily, and management of side effects reviewed. Recovery support, harm reduction (including Narcan), and behavioral health attendance reviewed. Patient expressed understanding and agreement with continuing plan of care. BP is elevated today; she is asymptomatic. [facility] BP was last checked several months ago and she was told that it was elevated. [facility] has been contacted several times by [facility] via to schedule PCP tani't, but she was working. We scheduled [facility] PCP tani't today for 10/02. UTOX: + bup Taking Suboxone 12/3 mg in AM We discussed Sublocade; she will consider it. Will let us know when/if she decides to switch. 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 The following portions of the chart were reviewed this encounter and updated as appropriate: Tobacco Allergies Meds Problems Med Hx Surg Hx Fam Hx Review of Systems Constitutional: Negative for fever. Respiratory: Negative for shortness of breath. Cardiovascular: Negative for chest pain. Gastrointestinal: Negative for abdominal pain. Skin: Negative for rash. Neurological: Negative for headaches. Objective Physical Exam Vitals and nursing note reviewed. Constitutional: Appearance: Normal appearance. HENT: Head: Normocephalic and atraumatic. Nose: Nose normal. Eyes: Conjunctiva/sclera: Conjunctivae normal. Pupils: Pupils are equal, round, and reactive to light. Pulmonary: Effort: Pulmonary effort is normal. Skin: General: Skin is warm and dry. Neurological: Mental Status: She is alert. Gait: Gait is intact. Psychiatric: Mood and Affect: Mood and affect normal. Behavior: Behavior normal. Procedures Assessment/Plan Diagnoses and all orders for this visit: Uncomplicated opioid dependence (CMS/HCC) Recovery support, harm reduction (including Narcan) and behavioral health attendance reviewed. Continue Suboxone 12/3 mg on 8 week schedule. - POCT PARAG-14 Urine Drug Screen - Hepatic Function Panel; Future - Hepatitis B Core Antibody, Total; Future - Hepatitis B Surface Antibody, Qualitative; Future - Hepatitis A Antibody, Total; Future - Hepatitis B surface antigen, EIA; Future - Hepatitis C Antibody with Reflex to HCV, RNA, Quantitative, Real-Time PCR; Future - HIV-1/2 Antigen and Antibodies, Fourth Generation, with Reflexes; Future - RPR (Monitor) with Reflex to Titer; Future - T-SPOT??.TB; Future Elevated blood pressure reading in office without diagnosis of hypertension Prescribed home BP monitor. 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 Prescribed lisinopril 20 mg and amlodipine 5 mg to start today. She states that clonidine 0.1 mg hs that she takes for sleep has not been effective since the tablet respiratory therapy assistant was switched, and [facility] pharmacist suggested increasing dose to 0.2 mg, which I did today. If BP does not improve by tonight (discussed BP parameters) advised to go to the ED. If BP is below 170/100 by the AM, advised to go to [facility] for recheck. Lab tests ordered. - CBC auto differential; Future - Basic Metabolic Panel; Future - Hemoglobin A1c; Future - TSH with Reflex to Free T4; Future - Vitamin D, 25-Hydroxy, Total, Immunoassay; Future Other orders - cloNIDine (Catapres) 0.2 MG tablet; Take 1 tablet (0.2 mg) by mouth at bedtime. - lisinopril (Prinivil) 20 MG tablet; Take 1 tablet (20 mg) by mouth Once per day. - Blood Pressure kit; 1 each 2 times daily. documented in this encounter Plan of Treatment Upcoming Encounters Date Type Department Care Team (Late st Contact Info) Description 09/16/2024 1:00 PM EDT Office Visit [facility] MEDICINE [address] [place] [phone] Pranav Erazo MD [address] [place] [address] 10/02/2024 2:00 PM EDT Office Visit [address] [phone] Mayda Jones FNP [address] [place], [place] [phone] 11/11/2024 2:15 PM EDT Clinical Support [address] [phone] Alize Carey RN Scheduled Orders Name Type Priority Associated Diagnoses Orde r Schedule Hepatitis B Core Antibody, Total Lab Routine Uncomplicated opioid dependence (CMS/HCC) Expected: 08/19/2024 (Approximate), Expires: 08/19/2025 Hepatitis B Surface Antibody, Qualitative Lab Routine Uncomplicated opioid dependence (CMS/HCC) Expected: 08/19/2024 (Approximate), Expires: 08/19/2025 Hepatitis A Antibody, Total Lab Routine Uncomplicated opioid dependence (CMS/HCC) Expected: 08/19/2024 (Approximate), Expires: 08/19/2025 Hepatitis B surface antigen, EIA Lab Routine Uncomplicated opioid dependence (CMS/HCC) Expected: 08/19/2024 (Approximate), Expires: 08/19/2025 Hepatitis C Antibody with Reflex to HCV, RNA, Quantitative, Real-Time PCR Lab Routine Uncomplicated opioid dependence (CMS/HCC) Expected: 08/19/2024 (Approximate), Expires: 08/19/2025 HIV-1/2 Antigen and Antibodies, Fourth Generation, with Reflexes Lab Routine Uncomplicated opioid dependence (CMS/HCC) Expected: 08/19/2024 (Approximate), Expires: 08/19/2025 RPR (Monitor) with Reflex to??Titer Lab Routine Uncomplicated opioid dependence (CMS/HCC) Expected: 08/19/2024 (Approximate), Expires: 08/19/2025 T-SPOT??.TB Lab Routine Uncomplicated opioid dependence (CMS/HCC) Expected: 08/19/2024 (Approximate), Expires: 08/19/2025 documented as of this encounter Procedures Procedure Name Priority Date/Time Associated Diagnosis Comments VITAMIN D,25-OH,TOTAL,IA Routine 08/20/2024 2:25 PM EST Elevated blood pressure reading in office without diagnosis of hypertension TSH W/REFLEX TO FT4 Routine 08/20/2024 2:25 PM EST Elevated blood pressure reading in office without diagnosis of hypertension HEMOGLOBIN A1C Routine 08/20/2024 2:25 PM EST Elevated blood pressure reading in office without diagnosis of hypertension HEPATIC FUNCTION PANEL Routine 08/20/2024 2:25 PM EST Uncomplicated opioid dependence (CMS/HCC) BASIC METABOLIC PANEL Routine 08/20/2024 2:25 PM EST Elevated blood pressure reading in office without diagnosis of hypertension CBC WITH AUTO DIFFERENTIAL Routine 08/20/2024 2:20 PM EST Elevated blood pressure reading in office without diagnosis of hypertension POCT PARAG-14 URINE DRUG SCREEN Routine 08/19/2024 2:41 PM EST Uncomplicated opioid dependence (CMS/HCC) documented in this encounter Results * (ABNORMAL) Vitamin D, 25-Hydroxy, Total, Immunoassay (08/20/2024 2:25 PM EST) Vitamin D 25-OH Total 22.0(L) >30 ng/mL [facility] Comment:Health Based Referen ce Values*< 20 ng/mL Kabalmqbc10-13 ng/mL Insufficient> 30 ng/mL Sufficient*Yadira CERVANTES. N [...] ORDERABLES Final Resul t Performing Organization Address [facility] Co de Phone Number [facility] [address] [place] [phone] * TSH with Reflex to Free T4 (08/20/2024 2:25 PM EST) TSH reflex Free T4 1.92 0.32 - 4.0 uIU/mL [facility] Blood Venous blood specimen / Unknown 08/20/2024 2:25 PM EST 08/20/2024 4:04 PM EST us Pranav Erazo MD LAB BLOOD ORDERABLES Final Resul t Performing Organization Address [facility] de Phone Number [facility] [address] [place] [phone] * Hemoglobin A1c (08/20/2024 2:25 PM EST) Hemoglobin A1c 5.2 <6.0 % [facility] Comment:Hemoglobin A1C Refer ence Range Adults: 4.8 - 6.0 % Non diabetic: < 6.0 % Goal: < 7.0 %Additional Action Suggested: > 8.0 %Note: Hemoglobin A1c results are invalid for patients with abnormal amounts of HbF. Blood transfusions may impact the HbA1c concentration in the patient sample. Estimated Average Glucose 103 mg/dL [facility] Comment:eAG = Estimated ave rage glucose which is %A1C expressed asaverage glucose, using the formula of the W5V-WodarnuJplmoek Glucose study (ADAG), Diabetes Care, Vol.31,#8,2007 Blood Venous blood specimen / Unknown 08/20/2024 2:25 PM EST 08/20/2024 4:04 PM EST Result Harpreet Erazo MD LAB BLOOD ORDERABLES Final Resul t Performing Organization Address [facility] Co de Phone Number [facility] [address] [place] [phone] [phone] * (ABNORMAL) Basic Metabolic Panel (08/20/2024 2:25 PM EST) Sodium 140 135 - 145 mmol/L [facility] Potassium 4.0 3.3 - 5.1 mmol/L [facility] Chloride 105 96 - 108 mmol/L [facility] Carbon Dioxide 26 22 - 29 mmol/L [facility] Anion Gap 13 12 - 20 [facility] Urea Nitrogen (BUN) 19(H) 9 - 16 mg/dL [facility] Creatinine, Serum 0.81 0.5 - 1.4 mg/dL [facility] Estimated Glomerular Filt Rate >60 [facility] Comment:Chronic Kidney Disea se: Estimated GFR < 60 mL/min/[id number] Kidney Disease: Estimated GFR < 15 mL/min/1.73m2 Glucose 83 60 - 115 mg/dL [facility] Calcium 9.6 8.4 - 10.2 mg/dL [facility] Blood Venous blood specimen / Unknown 08/20/2024 2:25 PM EST 08/20/2024 4:04 PM EST Pranav Erazo MD LAB BLOOD ORDERABLES Final Resul t Performing Organization Address [facility] Co de Phone Number [facility] [address] [place] [address] [phone] * (ABNORMAL) Hepatic Function Panel (08/20/2024 2:25 PM EST) Bilirubin, Total 0.3 0.0 - 1.0 mg/dL [facility] Bilirubin, Direct 0.1 0.0 - 0.5 mg/dL [facility] Aspartate Amino Transferase 31 5 - 31 U/L [facility] Alanine Aminotransferase 57(H) 0 - 31 U/L [facility] Total Protein 8.8(H) 6.5 - 8.0 g/dL [facility] Albumin Level 4.3 3.5 - 5.0 g/dL [facility] Alkaline Phosphatase 138(H) 39 - 117 U/L [facility] Blood Venous blood specimen / Unknown 08/20/2024 2:25 PM EST 08/20/2024 4:04 PM EST us Pranav Erazo MD LAB BLOOD ORDERABLES Final Resul t [facility] [address] [place] [phone] [phone] * (ABNORMAL) CBC auto differential (08/20/2024 2:20 PM EST) White Blood Count 12.7(H) 4.8 - 10.8 X10*3/uL [facility] Red Blood Count 4.83 4.20 - 5.50 X10*6/uL [facility] Hemoglobin 14.6 12.0 - 16.0 g/dl [facility] Hematocrit 44.2 37.0 - 47.0 % [facility] Mean Corpuscular Volume 91.5 80.0 - 98.0 fL [facility] Mean Corpuscular Hemoglobin 30.2 27.0 - 33.0 pg [facility] Mean Corpuscular HGB Conc 33.0 31.0 - 35.0 g/dl [facility] Red Cell Distribution Width 13.7 11.0 - 16.0 % [facility] Platelet Count 474(H) 160 - 400 X10*3/uL [facility] Mean Platelet Volume 9.9 9.4 - 12.3 fL [facility] Neutrophils Percent Auto 67.6 45 - 73 % [facility] Imm Gran Pct Auto 0.2 0.0 - 0.4 % [facility] Lymphocytes Percent Auto 18.2(L) 20 - 40 % [facility] Monocytes Percent Auto 5.3 2 - 11 % [facility] Eosinophils Percent Auto 8.2(H) 0 - 4 % [facility] Basophils Percent Auto 0.5 0 - 2 % [facility] NRBC Pct Auto 0.0 0.0 - 0.2 /100WBC [facility] Neutrophils Absolute Auto 8.6(H) 2.0 - 8.3 x10*3/uL [facility] Imm Gran Abs Auto 0.03 0.00 - 0.03 X10*3/uL [facility] Lymphocytes Absolute Auto 2.3 1.2 - 4.9 X10*3/uL [facility] Monocytes Absolute Auto 0.7 0.1 - 1.2 X10*3/uL [facility] Eosinophils Absolute Auto 1.0(H) 0.0 - 0.4 X10*3/uL [facility] Basophils Absolute Auto 0.1 0.0 - 0.2 X10*3/uL [facility] NRBC Abs Auto 0.000 0.0 - 0.012 X10*3/uL [facility] Blood Venous blood specimen / Unknown 08/20/2024 2:20 PM EST 08/20/2024 4:04 PM EST us Pranav Erazo MD LAB BLOOD ORDERABLES Final Resul t [facility] [address] [place] [phone] * POCT PARAG-14 Urine Drug Screen (08/19/2024 2:41 PM EST) THC Positive Cocaine Screen, Urine Negative Opiate [...] CARE TEST ENTER/EDIT OR DERABLES Final Result documented in this encounter Visit Diagnoses Diagnosis Uncomplicated opioid dependence (CMS/HCC)- Primary Elevated blood pressure reading in office without diagnosis of hypertension documented in this encounter Additional Health Concerns Assessment Noted Time PHQ-9 Depression Total Score: 4 02/23/20 23 11:55 AM EDT documented as of this encounter
--- OUTSIDE RECORDS SUMMARY | 2024-08-20 17:58 | XMS_ITS | Encounter Summary ---
Author Organization [employer] Address [address] [place] [address] 7 [place] [address] Care Team Providers Care Chiller Tender Name Role Phone Mar Elizabeth SALOME Primary Care Provider [phone] Encounter Details Date Type Department Care Team (Late st Contact Info) Description 01/31/2023 Orders Only [facility] [address] [place] [address] Pranav Erazo MD [address] [place] [phone] Mixed anxiety and depressive disorder Social History [...] Description 09/16/2024 1:00 PM EDT Office Visit [facility] [address] [place] [phone] Pranav Erazo MD [address] [place] [phone] 10/02/2024 2:00 PM EDT Office Visit [facility] [address] [place] [address] [phone] Mayda Jones FNP [address] [place] [address] 11/11/2024 2:15 PM EDT Clinical Support [facility] [address] [place] [phone] Alize Carey RN documented as of this encounter Visit Diagnoses Diagnosis Mixed anxiety and depressive disorder Dysthymic disorder documented in this encounter Care Teams Chiller Tender Relationship Specialty Start Date End Date Mar Elizabeth FNP [address] [place] [phone] PCP - General Family Medicine 02/23/22 04/20/23 documented as of this encounter
--- OUTSIDE RECORDS SUMMARY | 2024-08-20 17:58 | XMS_ITS | Encounter Summary ---
Author Organization [employer] Address [address] [place] [address] Care Team Providers Care Composition Stone Applicator Name Role Phone Unavailable Primary Care Provider Unavailabl e Reason for Visit * Reason Onset Date Comments Med Refill 08/06/2024 Encounter Details Date Type Department Care Team (Late st Contact Info) Description 08/06/2024 Refill [facility] [address] [place] [phone] Alize Carey RN Uncomplicated opioid dependence (CMS/[facility]) Social History Tobacco Use Types Packs/Day Years [...] Description 09/16/2024 1:00 PM EDT Office Visit [facility] [address] [place] [address] [phone] Pranav Erazo MD [address] [place] [phone] 10/02/2024 2:00 PM EDT Office Visit [facility] [address] [place] [phone] Mayda Jones FNP [address] [place] [address] 11/11/2024 2:15 PM EDT Clinical Support [facility] [address] [place] [address] Alize Carey RN documented as of this encounter Visit Diagnoses Diagnosis Uncomplicated opioid dependence (CMS/HCC) documented in this encounter Additional Health Concerns Assessment Noted Time PHQ-9 Depression Total Score: 4 02/23/20 23 11:55 AM EDT documented as of this encounter
--- OUTSIDE RECORDS SUMMARY | 2024-08-20 17:58 | XMS_ITS | Encounter Summary ---
Author Organization [employer] Address [address] [place] [address] [facility] [place] [address] Care Team Providers Care Wrapper Stemmer Hand Name Role Phone Unavailable Primary Care Provider Unavailabl e Encounter Details Date Type Department Care Team (Latest Contact Info) Description 08/19/2024 Travel Social History Tobacco Use Types Packs/Day Years [...] Description 09/16/2024 1:00 PM EDT Office Visit [facility] [address] [place] [phone] Pranav Erazo MD [address] [place] [address] 10/02/2024 2:00 PM EDT Office Visit [facility] [address] [place] [phone] Mayda Jones FNP [address] [place] [address] 11/11/2024 2:15 PM EDT Clinical Support [facility] [address] [place] [address] Alize Carey RN documented as of this encounter Visit Diagnoses Not on filedocumented in this encounter Additional Health Concerns Assessment Noted Time PHQ-9 Depression Total Score: 4 02/23/20 23 11:55 AM EDT documented as of this encounter
--- OUTSIDE RECORDS SUMMARY | 2024-08-20 17:58 | XMS_ITS | Encounter Summary ---
Author Organization [facility] Address [address] [place] [address] [place] [address] Care Team Providers Care Baffle Mounter Name Role Phone Mar Elizabeth Primary Care Provider [phone] Reason for Visit * Reason Comments Med Refill Encounter Details Date Type Department Care Team (Late st Contact Info) Description 04/05/2023 Refill [facility] [address] [place] [address] Mar Elizabeth FNP [address] [place] [address] Shortness of breath; Uncomplicated opioid dependence (CMS/HCC) Social History Tobacco Use Types Packs/Day Years [...] Description 09/16/2024 1:00 PM EDT Office Visit [facility] [address] [place] [address] Pranav Erazo MD [address] [place] [address] 10/02/2024 2:00 PM EDT Office Visit [facility] [address] [place] [address] Mayda Jones FNP [address] [place] [address] 11/11/2024 2:15 PM EDT Clinical Support [facility] [address] [place] [address] Alize Carey RN documented as of this encounter Visit Diagnoses Diagnosis Shortness of breath Uncomplicated opioid dependence (CMS/HCC) documented in this encounter Additional Health Concerns Assessment Noted Time PHQ-9 Depression Total Score: 4 02/23/20 23 11:55 AM EDT documented as of this encounter Care Teams Baffle Mounter Relationship Specialty Start Date End Date Mar Elizabeth FNP [address] [place] [phone] PCP - General Family Medicine 02/23/22 04/20/23 documented as of this encounter
--- OUTSIDE RECORDS SUMMARY | 2024-08-20 17:58 | XMS_ITS | Encounter Summary ---
Author Organization [employer] Address [address] [place] [address] 7 [place] [address] Care Team Providers Care Yarder Engineer Name Role Phone Unavailable Primary Care Provider Unavailabl e Reason for Visit * Reason Comments Med Refill Encounter Details Date Type Department Care Team (Late st Contact Info) Description 10/02/2023 Refill [facility] [address] [place] [phone] Pranav Erazo MD [address] [place] [phone] Mixed anxiety and depressive disorder Social History [...] Description 09/16/2024 1:00 PM EDT Office Visit [facility] [address] [place] [phone] Pranav Erazo MD [address] [place] [address] [phone] 10/02/2024 2:00 PM EDT Office Visit [facility] [address] [place] [address] Mayda Jones FNP [address] [place] [address] 11/11/2024 2:15 PM EDT Clinical Support [facility] [address] [place] [address] Alize Carey RN documented as of this encounter Visit Diagnoses Diagnosis Mixed anxiety and depressive disorder Dysthymic disorder documented in this encounter Additional Health Concerns Assessment Noted Time PHQ-9 Depression Total Score: 4 02/23/20 23 11:55 AM EDT documented as of this encounter
--- OUTSIDE RECORDS SUMMARY | 2024-08-20 17:58 | XMS_ITS | Encounter Summary ---
Author Organization [facility] [facility] Address [address] [place] [address] Care Team Providers Care Seo Strategist Name Role Phone Unavailable Primary Care Provider Unavailabl e Reason for Visit * Reason Onset Date Comments Med Refill 07/24/2023 Encounter Details Date Type Department Care Team (Late st Contact Info) Description 07/24/2023 Refill [facility] [address] [place] [phone] Pranav Erazo MD [address] [place] [phone] Uncomplicated opioid dependence (CMS/HCC) Social History Tobacco [...] 09/16/2024 1:00 PM EDT Office Visit [facility] [address] [place] [address] Pranav Erazo MD [address] [place] [address] [phone] 10/02/2024 2:00 PM EDT Office Visit [facility] [address] [place] [phone] Mayda Jones FNP [address] [place] [address] 11/11/2024 2:15 PM EDT Clinical Support [address] [phone] Alize Carey RN documented as of this encounter Visit Diagnoses Diagnosis Uncomplicated opioid dependence (CMS/HCC) documented in this encounter Additional Health Concerns Assessment Noted Time PHQ-9 Depression Total Score: 4 02/23/20 23 11:55 AM EDT documented as of this encounter
--- OUTSIDE RECORDS SUMMARY | 2024-08-20 17:58 | XMS_ITS | Encounter Summary ---
Author Organization [facility] Address [address] [place] [address] Care Team Providers Care Planning Aide Name Role Phone Unavailable Primary Care Provider Unavailabl e Reason for Visit * Reason Onset Date Comments Med Refill 06/21/2023 Encounter Details Date Type Department Care Team (Late st Contact Info) Description 06/21/2023 Refill [facility] [address] [place] [phone] Pranav Erazo MD [address] [place] [phone] Uncomplicated opioid dependence (CMS/HCC) Social History Tobacco [...] Office Visit [facility] [address] [place] [phone] Pranav Erazo MD [address] [place] [address] [phone] 10/02/2024 2:00 PM EDT Office Visit [facility] [address] [place] [phone] Mayda Jones FNP [address] [place] [address] 11/11/2024 2:15 PM EDT Clinical Support [address] [address] Alize Carey RN documented as of this encounter Visit Diagnoses Diagnosis Uncomplicated opioid dependence (CMS/HCC) documented in this encounter Additional Health Concerns Assessment Noted Time PHQ-9 Depression Total Score: 4 02/23/20 23 11:55 AM EDT documented as of this encounter
--- OUTSIDE RECORDS SUMMARY | 2024-08-20 17:58 | XMS_ITS | Encounter Summary ---
Author Organization [employer] Address [address] [place] [address] [place] [address] Care Team Providers Care Assembly And Packing Supervisor Name Role Phone Unavailable Primary Care Provider Unavailabl e Reason for Visit * Reason Onset Date Comments New patient 08/19/2024 Encounter Details Date Type Department Care Team ([facility] st Contact Info) Description 08/19/2024 Telephone [facility] MEDICINE [address] [place] [address] Neto Georges MD [address] [place] [address] New patient Social History Tobacco Use Types Packs/Day Years [...] encounter Miscellaneous Notes * Telephone Encounter - Elsa Carranza - 08/19/2024 2:52 PM EST TC placed to patient for scheduling of new patient visit. Agreed to 10/02/24 with [facility] Medical Conditions: Anxiety and depression Asthma Apptmnt reminder and release form sent via mail . documented in this encounter Plan of Treatment Upcoming Encounters Date Type Department Care Team (Late st Contact Info) Description 09/16/2024 1:00 PM EDT Office Visit [address] [phone] Pranav Erazo MD [address] [place] [address] 10/02/2024 2:00 PM EDT Office Visit [address] [phone] Mayda Jones FNP 230 [place], [place] [phone] 11/11/2024 2:15 PM EDT Clinical Support [address] [phone] Alize Carey RN documented as of this encounter Visit Diagnoses Not on filedocumented in this encounter Additional Health Concerns Assessment Noted Time PHQ-9 Depression Total Score: 4 02/23/20 23 11:55 AM EDT documented as of this encounter
--- OUTSIDE RECORDS SUMMARY | 2024-08-20 17:58 | XMS_ITS | Encounter Summary ---
Author Organization [employer] [facility] Address [address] [place] [address] Care Team Providers Care Resident Care Assistant Name Role Phone Unavailable Primary Care Provider Unavailabl e Reason for Visit * Reason Onset Date Comments Med Refill 03/11/2024 Encounter Details Date Type Department Care Team (Late st Contact Info) Description 03/11/2024 Refill [facility] MEDICINE [address] [place] [phone] Pranav Erazo MD [address] [place] [phone] Mixed anxiety and depressive disorder Social History [...] Description 09/16/2024 1:00 PM EDT Office Visit [facility] MED[facility]INE [address] [place] [phone] Pranav Erazo MD [address] [place] [address] [phone] 10/02/2024 2:00 PM EDT Office Visit [facility] [address] [place] [address] Mayda Jones FNP [address] [place] [address] 11/11/2024 2:15 PM EDT Clinical Support [facility] [address] [place] [address] Alize Carey RN documented as of this encounter Visit Diagnoses Diagnosis Mixed anxiety and depressive disorder Dysthymic disorder documented in this encounter Additional Health Concerns Assessment Noted Time PHQ-9 Depression Total Score: 4 02/23/20 23 11:55 AM EDT documented as of this encounter
--- OUTSIDE RECORDS SUMMARY | 2024-08-20 17:58 | XMS_ITS | Encounter Summary ---
Author Organization [employer] Address [address] [place] [address] [facility] [place] [address] Care Team Providers Care Assistant Chief Of Police Name Role Phone Unavailable Primary Care Provider Unavailabl e Reason for Visit * Reason Comments Med Refill Encounter Details Date Type Department Care Team (Late st Contact Info) Description 07/11/2023 Refill [facility] MEDICINE [address] [place] [phone] Mar Elizabeth FNP [address] [place] [address] Shortness of breath Social History Tobacco Use [...] Description 09/16/2024 1:00 PM EDT Office Visit [facility] MEDICINE [address] [place] [address] Pranav Erazo MD [address] [place] [phone] 10/02/2024 2:00 PM EDT Office Visit [facility] MEDICINE [address] [place] [address] Mayda Jones FNP [address] [place] [address] 11/11/2024 2:15 PM EDT Clinical Support [facility] [address] [place] [address] Alize Carey RN documented as of this encounter Visit Diagnoses Diagnosis Shortness of breath documented in this encounter Additional Health Concerns Assessment Noted Time PHQ-9 Depression Total Score: 4 02/23/20 23 11:55 AM EDT documented as of this encounter
--- OUTSIDE RECORDS SUMMARY | 2024-08-20 17:58 | XMS_ITS | Encounter Summary ---
Author Organization [employer] Address [address] [place] [address] 7 [place] [address] Care Team Providers Care Senior Mechanical Project Engineer Name Role Phone Unavailable Primary Care Provider Unavailabl e Encounter Details Date Type Department Care Team (Late st Contact Info) Description 10/04/2023 Orders Only [facility] [address] [place] [address] [phone] Pranav Erazo MD [address] [place] [phone] Social History Tobacco Use Types Packs/Day Years [...] Description 09/16/2024 1:00 PM EDT Office Visit [facility] [address] [place] [phone] Pranav Erazo MD [address] [place] [address] 10/02/2024 2:00 PM EDT Office Visit [facility] [address] [place] [phone] Mayda Jones FNP [address] [place] [address] 11/11/2024 2:15 PM EDT Clinical Support [facility] 230 [place] [address] Alize Carey RN documented as of this encounter Visit Diagnoses Not on filedocumented in this encounter Additional Health Concerns Assessment Noted Time PHQ-9 Depression Total Score: 4 02/23/20 23 11:55 AM EDT documented as of this encounter
--- OUTSIDE RECORDS SUMMARY | 2024-08-20 17:58 | XMS_ITS | Encounter Summary ---
Author Organization [employer] [facility] Address [address] [place] [address] Care Team Providers Care Rugby League Footballer Name Role Phone Unavailable Primary Care Provider Unavailabl e Reason for Visit * Reason Onset Date Comments Med Refill 09/19/2023 Encounter Details Date Type Department Care Team (Late st Contact Info) Description 09/19/2023 Refill [facility] MEDICINE [address] [place] [phone] Pranav Erazo MD [address] [place] [phone] Social History Tobacco Use Types Packs/Day Years [...] Description 09/16/2024 1:00 PM EDT Office Visit [facility] MEDICINE [address] [place] [phone] Pranav Erazo MD [address] [place] [phone] 10/02/2024 2:00 PM EDT Office Visit [facility] MEDICINE [address] [place] [address] Mayda Jones FNP [address] [place] [address] 11/11/2024 2:15 PM EDT Clinical Support [facility] MEDICINE [address] [place] [address] Alize Carey RN documented as of this encounter Visit Diagnoses Not on filedocumented in this encounter Additional Health Concerns Assessment Noted Time PHQ-9 Depression Total Score: 4 02/23/20 23 11:55 AM EDT documented as of this encounter
--- OUTSIDE RECORDS SUMMARY | 2024-08-20 17:58 | XMS_ITS | Encounter Summary ---
Author Organization [employer] [facility] Address [address] [place] [address] Care Team Providers Care National Sales Director Name Role Phone Unavailable Primary Care Provider Unavailabl e Reason for Visit * Reason Comments Med Refill Encounter Details Date Type Department Care Team (Late st Contact Info) Description 09/09/2023 Refill [facility] MEDICINE [address] [place] [phone] Pranav Erazo MD [address] [place] [phone] Social History Tobacco Use Types Packs/Day Years [...] Description 09/16/2024 1:00 PM EDT Office Visit [facility] MED[facility]INE [address] [place] [phone] Pranav Erazo MD [address] [place] [phone] 10/02/2024 2:00 PM EDT Office Visit [facility] MED[facility]INE [address] [place] [address] Mayda Jones FNP [address] [place] [address] 11/11/2024 2:15 PM EDT Clinical Support [facility] [address] [place] [address] Alize Carey RN documented as of this encounter Visit Diagnoses Not on filedocumented in this encounter Additional Health Concerns Assessment Noted Time PHQ-9 Depression Total Score: 4 02/23/20 23 11:55 AM EDT documented as of this encounter
--- OUTSIDE RECORDS SUMMARY | 2024-08-20 17:58 | XMS_ITS | Encounter Summary ---
Author Organization [facility] Address [address] [place] [address] [place] [address] Care Team Providers Care Medical Device Sales Consultant Name Role Phone Unavailable Primary Care Provider Unavailabl e Reason for Visit * Reason Onset Date Comments Med Refill 04/01/2024 Encounter Details Date Type Department Care Team (Late st Contact Info) Description 04/01/2024 Refill [facility] MEDICINE [address] [place] [phone] Pranav Erazo MD [address] [place] [phone] Mixed anxiety and depressive disorder Social History [...] 09/16/2024 1:00 PM EDT Office Visit [facility] MEDICINE [address] [place] [phone] Pranav Erazo MD [address] [place] [address] [phone] 10/02/2024 2:00 PM EDT Office Visit [facility] [address] [place] [address] Mayda Jones FNP [address] [place] [address] 11/11/2024 2:15 PM EDT Clinical Support [facility] [address] [place] [address] Alize Carey RN documented as of this encounter Visit Diagnoses Diagnosis Mixed anxiety and depressive disorder Dysthymic disorder documented in this encounter Additional Health Concerns Assessment Noted Time PHQ-9 Depression Total Score: 4 02/23/20 23 11:55 AM EDT documented as of this encounter
--- OUTSIDE RECORDS SUMMARY | 2024-08-20 17:58 | XMS_ITS | Encounter Summary ---
Author Organization [employer] [facility] Address [address] [place] [address] Care Team Providers Care Battery Parts Assembler Name Role Phone Unavailable Primary Care Provider Unavailabl e Reason for Visit * Reason Onset Date Comments Med Refill 05/08/2023 Encounter Details Date Type Department Care Team (Late st Contact Info) Description 05/08/2023 Refill [facility] MEDICINE [address] [place] [phone] Pranav Erazo MD [address] [place] [phone] Uncomplicated opioid dependence (CMS/HCC) Social History Tobacco [...] 1:00 PM EDT Office Visit [facility] MEDICINE [address] [place] [phone] Pranav Erazo MD [address] [place] [address] [phone] 10/02/2024 2:00 PM EDT Office Visit [facility] MEDICINE [address] [place] [address] Mayda Jones FNP [address] [place] [address] 11/11/2024 2:15 PM EDT Clinical Support [address] [address] Alize Carey RN documented as of this encounter Visit Diagnoses Diagnosis Uncomplicated opioid dependence (CMS/HCC) documented in this encounter Additional Health Concerns Assessment Noted Time PHQ-9 Depression Total Score: 4 02/23/20 23 11:55 AM EDT documented as of this encounter
[2024-08-21 09:07] LABS: Hepatitis A Antibody IgG REACTIVE (Nonreactive); ~Hepatitis A Antibody IgG 4.73 S/CO (0.00-0.99)
[2024-08-21 09:16] LABS: HBS Num1 278.16 mIU/mL (0-7.99); HBc Num1 0.25 S/CO (0.00-0.79); HIV AB/AG Nonreactive (Nonreactive); HIV Num 1 0.05 S/CO (0.00-0.99); Hepatitis B Core Antibody Nonreactive (Nonreactive); Hepatitis B Surface Antigen Negative (Negative); ~HepC Num1 0.22 S/CO (0.00-0.79); ~Hepatitis B Surface Antibody REACTIVE (Nonreactive); ~Hepatitis C Antibody Nonreactive (Nonreactive)
[2024-08-22 09:28] LABS: RPR Rapid Plasma Reagin NON-REACTIVE (NON-REACTIVE)
[2024-08-23 16:28] LABS: TS Negative Control Passed; TS Panel A 1; TS Panel B 0; TS Positive Control Passed; TSpotTB Negative (Negative)
== END 2024-08-20 14:21 | disposition home or self-care (01) ==
LOC: HO.HHCL 14:20
PROVIDERS: Visit Provider Emergency Medicine
DX: F11.20 Opioid dependence, uncomplicated (principal); R03.0 Elevated blood-pressure reading, without diagnosis of hypertension
CPT/HCPCS: 36415; 80048; 80076; 82306; 83036; 84443; 85025; 86481; 86592; 86704; 86706; 86708; 86803; 87340; 87389